=== PATIENT | female | born 1985 | race Caucasian/White ===

== ENCOUNTER 2018-06-18 22:38 | Emergency (ER) | payer OTHER ==
[~2018-06-18] VITALS: Ht 160 cm; Wt 79.4 kg
[~2018-06-18 22:38] MED LIST: ACETAMINOPHEN-1 EAC1; APAP500 PO; AUGMENTIN 875875 MG PO; IBUPROFEN 800800 M1 PO; KEFLEX500 MG PO; KEPPRA 500 MG500 M1 PO; MAG-OX 400 TAB400 M1 PO; NAPROSYN500 MG PO; NORCO 5-325 TA1 EACH PO; PERCOCET 5-3251 EACH PO; PHENERGAN 25 MG25 MG PO; PRENATAL PO; PROTONIX40 M2 PO; REGLAN 10 MG TA10 M1 PO; TUMS CHEWA500 MG/11 PO; XANAX 0.5 MG0.5 M1 PO
[2018-06-18] MEDS ORDERED: ESTRADIOL 1 MG T1 M1 PO (23:00)
[2018-06-18] MEDS ORDERED: KAPSPARGO SPRIN50 MG PO (23:00)
[2018-06-18] MEDS ORDERED: VYVANSE40 MG PO (23:01)
[2018-06-19] LABS: URINE BILIRUBIN NEGATIVE (Negative); URINE BLOOD NEGATIVE (Negative); URINE CLARITY CLEAR; URINE COLOR YELLOW; URINE GLUCOSE-RANDOM NEGATIVE (Negative); URINE KETONES TRACE (Negative); URINE LEUKOCYTES NEGATIVE (Negative); URINE NITRITE NEGATIVE (Negative); URINE PROTEIN NEGATIVE (Negative); URINE SPECIFIC GRAVITY 1.025 (1.005-1.030); URINE UROBILINOGEN 0.2 E.U./dl (0.2-1.0)
[2018-06-19] MEDS ORDERED: MOBIC15 MG PO (01:07)
[2018-06-19] MEDS ORDERED: DIAZEPAM 5 MG5 M1 PO (01:07)
[2018-06-19] MEDS ORDERED: NORCO 5-325 TA1 EACH PO (01:07)
[2018-06-19 01:24] VITALS: BP 104/69
== END 2018-06-19 01:24 | disposition home or self-care (01) ==
LOC: M.ERS 22:38
PROVIDERS: Personal Emergency Response Attendant
DX: S16.1XXA Strain of muscle, fascia and tendon at neck level, initial encounter (principal); F17.210 Nicotine dependence, cigarettes, uncomplicated; Z88.8 Allergy status to other drugs, medicaments and biological substances; Z88.6 Allergy status to analgesic agent; V49.59XA Passenger injured in collision with other motor vehicles in traffic accident, initial encounter; Y93.89 Activity, other specified; Y92.89 Other specified places as the place of occurrence of the external cause; Y99.8 Other external cause status

== ENCOUNTER 2019-01-31 20:23 | Emergency (ER) | payer OTHER ==
[~2019-01-31] VITALS: Ht 160 cm; Wt 74.8 kg
[~2019-01-31 20:23] MED LIST changes: +DIAZEPAM 5 MG5 M1 PO; +ESTRADIOL 1 MG T1 M1 PO; +KAPSPARGO SPRIN50 MG PO; +MOBIC15 MG PO; +VYVANSE40 MG PO
[2019-01-31 21:04] LABS: ABSOLUTE BASOPHILS 0.1 thou/uL (0.0-0.2); ABSOLUTE EOSINOPHILS 0.3 thou/uL (0.0-0.7); ABSOLUTE LYMPHOCYTES 3.9 thou/uL (0.8-5.3); ABSOLUTE MONOCYTES 0.8 thou/uL (0.0-1.2); ABSOLUTE NEUTROPHILS 3.8 thou/uL (1.6-8.1); BASOPHILS 0.9 %; EOSINOPHILS 3.2 %; HEMATOCRIT 40.4 % (37.0-47.0); HEMOGLOBIN 13.8 gm/dL (12.0-15.0); LYMPHOCYTES 44.2 %; MCH 29.7 pg (26.0-34.0); MCHC 34.1 g/dL (28.0-37.0); MCV 87.2 fL (80.0-100.0); MONOCYTES 8.6 %; MPV 7.9 fl. (7.2-11.1); NUCLEATED RBCS 0 /100WBC; PLATELET COUNT* 289 thou/uL (150-400); POLYS 43.1 %; RBC 4.63 mil/uL (4.20-5.00); RDW-CV 12.6 % (10.5-14.5); WBC 8.9 thou/uL (4.0-11.0)
[2019-01-31 21:06] LABS: URINE BILIRUBIN NEGATIVE (Negative); URINE BLOOD NEGATIVE (Negative); URINE CLARITY CLEAR; URINE COLOR YELLOW; URINE GLUCOSE-RANDOM NEGATIVE (Negative); URINE LEUKOCYTES-REFLEX NEGATIVE (Negative); URINE NITRITE-REFLEX NEGATIVE (Negative); URINE PROTEIN NEGATIVE (Negative); URINE UROBILINOGEN 0.2 E.U./dl (0.2-1.0)
[2019-01-31 21:09] LABS: URINE KETONES 3+ (Negative)
[2019-01-31 21:32] LABS: CALCIUM 8.5 mg/dL (8.5-10.1); CREATININE 0.8 mg/dL (0.6-1.3); POTASSIUM 3.6 mmol/L (3.5-5.1); TOTAL BILIRUBIN 0.3 mg/dL (<0.1-1.0); TOTAL PROTEIN 7.2 g/dL (6.4-8.2)
[2019-01-31] MEDS ORDERED: ACETAMINOPHEN-1 EAC1 PO (22:42)
[2019-01-31] MEDS ORDERED: NABUMETONE 750750 M1 PO (22:59)
[2019-01-31] MEDS ORDERED: PYRIDIUM100 M1 PO (22:59)
[2019-01-31] MEDS ORDERED: KEFLEX500 M1 PO (23:01)
[2019-01-31 23:30] VITALS: BP 103/61
== END 2019-01-31 23:30 | disposition home or self-care (01) ==
LOC: M.ERS 20:23
PROVIDERS: Physician Assistant
DX: N83.202 Unspecified ovarian cyst, left side (principal); R30.0 Dysuria; N80.9 Endometriosis, unspecified; F17.210 Nicotine dependence, cigarettes, uncomplicated; Z88.5 Allergy status to narcotic agent; Z88.6 Allergy status to analgesic agent; Z88.8 Allergy status to other drugs, medicaments and biological substances; Z88.7 Allergy status to serum and vaccine; Z91.018 Allergy to other foods; Z98.890 Other specified postprocedural states; Z87.440 Personal history of urinary (tract) infections; Z90.710 Acquired absence of both cervix and uterus